=== PATIENT | female | born 1975 | race Caucasian/White ===

== ENCOUNTER 2021-07-22 07:12 | Outpatient (CLI) | payer OTHER | END 2021-07-22 07:32 | disposition home or self-care (01) | LOC: SONOGRAMA 07:12 → MAMO-SONO 07:15 → SONOGRAMA 07:32 | PROVIDERS: ATTEND Urology | DX: R22.9 Localized swelling, mass and lump, unspecified (principal) ==

== ENCOUNTER 2021-07-31 08:07 | Outpatient (CLI) | payer OTHER | END 2021-07-31 08:11 | disposition home or self-care (01) | LOC: EDSEX 08:07 → MRI 08:07 | PROVIDERS: ATTEND Urology | DX: R22.9 Localized swelling, mass and lump, unspecified (principal) | CPT/HCPCS: 72197 ==

== ENCOUNTER 2022-02-14 07:29 | Outpatient (CLI) | payer OTHER | END 2022-02-14 07:37 | disposition home or self-care (01) | LOC: LAB 07:29 | PROVIDERS: ATTEND Urology | DX: R22.9 Localized swelling, mass and lump, unspecified (principal) ==

== ENCOUNTER 2022-02-14 08:14 | Outpatient (CLI) | payer OTHER | END 2022-02-14 08:28 | disposition home or self-care (01) | LOC: SONOGRAMA 08:14 | PROVIDERS: ATTEND Urology | DX: R22.9 Localized swelling, mass and lump, unspecified (principal) ==